=== PATIENT | female | born 1995 | race Caucasian/White ===

== ENCOUNTER → 2022-08-03 08:29 | Outpatient (CLI) | payer BC, SELFPAY ==
--- NOTE | ~2022-08-03 | MR_ITS ---
MRI of the brain Clinical History: Migraine Technique: Axial and sagittal T1-weighted images were acquired. These were followed by axial T2-weigh gisel, diffusion weighted, gradient, and FLAIR images. Following intravenous administration of 17 cc Mu ltiHance gadolinium, T1-weighted fat-sat imaging was performed in the axial and coronal planes. Findings: There is no abnormal signal in the brain parenchyma. No acute infarct, intracranial hemorrh age, or mass lesion identified. Ventricles and subarachnoid spaces are unremarkable. Orbits are unremarkable. Paranasal sinuses and m astoid air cells are clear. Major intracranial flow voids appear intact. Sagittal midline structures are intact. No abnormal postcontrast enhancement identified. IMPRESSION: Unremarkable exam. Reviewed, dictated and finalized at location M. IMPRESSION: Unremarkable exam.
== END ==
PROVIDERS: PCP Internal Medicine; Visit Provider Internal Medicine
DX: G43.909 Migraine, unspecified, not intractable, without status migrainosus (principal)
CPT/HCPCS: 70553; A9577

== ENCOUNTER 2023-01-16 08:33 | Emergency (ER) | payer BC, SELFPAY ==
[2023-01-16 08:47] VITALS: BP 125/75; PULSE 77; RESP 16; TEMP 36.9; O2SAT 100
--- NOTE | 2023-01-16 09:11 | ED.URI ---
HPI - URI/Sore Throat General Chief Complaint: Upper Respiratory Infection Stated Complaint: Cough;Chest pain;Bodyache Time Seen by Provider: 01/16/23 09:11 Source: patient, RN notes reviewed and old records reviewed Mode of arrival: ambulatory Limitations: no limitations History of Present Illness HPI Narrative: 28-year-old female who presents to [facility] with complaints of 10 day history of cough with expectoration of greenish tinged mucous, Patient reports that she has some sinus congestion an drainage with pressure to her ears also. Patient reports that she does have body aches but denies any known fevers or chills. Patient states that she has been taking some Mucinex without improvement in her symptoms.patient dttes that daughter has a slight cough but no other known sick contacts. Patient states when she gets the coughing fits she feels some shortness of breath and has priyanka discomfort to chest with cough. denies any history of asthma. MD elicited complaint: cough, rhinorrhea, nasal congestion and sinus pain Onset (ago): day(s) (10) Pain scale (0-10): 4 Description of mucous: green Exacerbating factors: other (coughing) Treatments prior to arrival: other (Mucinex) Related Data Home Medications Medication Instructions Recorded Confirmed levonorgestrel 21 mcg/24 hours (8 1 device intrauterine ONCE 01/20/22 01/20/22 yrs) 52 mg intrauterine device (Mirena) buspirone 7.5 mg tablet mg 01/16/23 sumatriptan succinate 50 mg tablet mg PO 01/16/23 Allergies Allergy/AdvReac Type Severity Reaction Status Date / Time No Known Allergies Allergy Verified 01/20/22 16:01 Review of Systems Review of Systems: CONSTITUTIONAL: Reports malaise, no chills, sweats, or fever. EYES: Denies visual changes, redness, or discharge. ENT: Reports rhinorrhea, congestion, sinus pain, otalgia and no sore throat. CARDIOVASCULAR: Denies chest pain, palpitations, or edema. RESPIRATORY: Reports cough.? states some dyspnea with coughing fits, and some soreness in chest GASTROINTESTINAL: Denies abdominal pain, nausea, vomiting, diarrhea SKIN: Denies rash or itching. MUSCULOSKELETAL: Positive for myalgia. NEUROLOGIC: Denies acute headache. All systems reviewed & are unremarkable except as noted in HPI and below PMFSH Past Medical History Medical History Encounter for IUD insertion 12/28/18 Mirena insertion Gestational hypertension Migraines Vaginal delivery 01/16/18 Nataliia Surgical History Surgical History History of 11/30/18 primary c/s--breech presentation, decreased FM Jerrod Family History Family History Grandparent Diabetes mellitus maternal grandmother maternal grandfather Heart disease paternal grandmother paternal grandfather Hypertension paternal grandmother paternal grandfather Mother Hypertension Social History Social History Smoking status: Never smoker Alcohol intake: never Substance use: never Substance use type: does not use Living arrangements: other Additional living arrangements comments: Occupation/Education: occupation Additional occupation/education comments: teacher Gender identity (if verbalized by the patient): Female Sexual Orientation (if Verbalized by the Patient): Straight or Heterosexual Comments At time of signature, agree with nursing past medical, surgical, social and family history. There is no relevant family history pertinent to the presenting complaint Exam Narrative: GENERAL: Well-appearing, well-nourished, and in no acute distress. HEAD: Normocephalic EYES: PERRLA, conjunctivae clear ENT: Nares clear, turbinates edematous and erythematous, clear to light yel
== END 2023-01-16 09:42 | disposition home or self-care (01) ==
PROVIDERS: Emergency Provider Registered Nurse; PCP Internal Medicine
DX: J01.40 Acute pansinusitis, unspecified (principal); Z20.822 Contact with and (suspected) exposure to COVID-19
CPT/HCPCS: 87426; 87804; 99213; C9803; G0463

== ENCOUNTER 2023-05-31 09:47 | Outpatient (CLI) | payer BC, SELFPAY ==
[2023-05-31 10:22] LABS: Basophils Percent Auto 0.2 % (0.2-1.2); Eosinophils Absolute Auto 0.1 K/mm3 (0-0.3); Eosinophils Percent Auto 0.8 % (0-4.4); Hematocrit 40.9 % (37.0-47.0); Hemoglobin 13.9 g/dL (12.0-15.0); Immature Granulocyte Absolute 0.04 K/mm3 (0.00-0.031); Immature Granulocyte Percent A 0.5 % (0-0.5); Lymphocytes Absolute Auto 1.64 K/mm3 (0.9-3.2); Mean Corpuscular Hemoglobin 30.9 pg (26-34); Mean Corpuscular Volume 90.9 fl (80-100); Mean Platelet Volume 10.4 fl (7.4-10.4); Monocytes Absolute Auto 0.6 K/mm3 (0.1-0.6); Monocytes Percent Auto 6.6 % (2.6-8.5); Neutrophils Absolute Auto 6.3 K/mm3 (1.3-6.7); Neutrophils Percent Auto 72.9 % (45.5-73.1); Platelet Count Result 250 k/mm3 (150-375); Red Cell Distribution Width 12.2 % (11.5-14.5); White Blood Count 8.6 K/mm3 (4.5-10.0)
[2023-05-31 11:14] LABS: HIV 1/2 Ab P24 Ag Result Negative (Negative)
[2023-05-31 11:51] LABS: Hepatitis B Surface Antigen Negative (Negative); Rubella IgG Antibody 13.5 IU/ML
[2023-06-01 12:36] LABS: Rapid Plasma Reagin Non-Reactive (NonReactive)
[2023-06-02 14:49] LABS: CMV IgG Antibody <0.60 U/mL
== END 2023-05-31 09:48 | disposition home or self-care (01) ==
LOC: ANHLAB 09:48
PROVIDERS: PCP Internal Medicine; Visit Provider Obstetrics & Gynecology
DX: N91.2 Amenorrhea, unspecified (principal)
CPT/HCPCS: 36415; 84702; 85025; 86592; 86644; 86703; 86747; 86762; 86787; 86850; 86900; 86901; 87086; 87340; G0432

== ENCOUNTER 2023-10-15 09:00 | Outpatient (CLI) | payer BC, SELFPAY ==
[2023-10-15 10:58] LABS: Hematocrit 38.7 % (37.0-47.0); Hemoglobin 12.9 g/dL (12.0-15.0); Mean Corpuscular HGB Conc 33.3 g/dl (32-36); Mean Corpuscular Hemoglobin 32.1 pg (26-34); Mean Corpuscular Volume 96.3 fl (80-100); Mean Platelet Volume 11.3 fl (7.4-10.4); Platelet Count Result 163 k/mm3 (150-375); Red Blood Count 4.02 M/mm3 (4.2-5.4); Red Cell Distribution Width 12.8 % (11.5-14.5); White Blood Count 10.5 K/mm3 (4.5-10.0)
[2023-10-15 11:18] LABS: Glucose 1 Hour PP 50gm Dose 123 mg/dL
[2023-10-15 11:54] LABS: HIV 1/2 Ab P24 Ag Result Negative (Negative)
[2023-10-15 12:41] LABS: Rapid Plasma Reagin Non-Reactive (NonReactive)
[2023-10-15] MEDS: RHO(D) IMMUNE GLOBULIN 300 MCG/2 ML SYRINGE IM (15:21)
== END 2023-10-15 09:01 | disposition home or self-care (01) ==
PROVIDERS: PCP Internal Medicine; Visit Provider Obstetrics & Gynecology
DX: Z34.90 Encounter for supervision of normal pregnancy, unspecified, unspecified trimester (principal)
CPT/HCPCS: 36415; 82947; 85027; 85461; 86592; 86703; 86850; 86900; 86901; 90384; 96372; G0432; J2790

== ENCOUNTER 2023-12-27 08:55 | Outpatient (RCR) | payer BC, SELFPAY ==
[2023-11-08 10:14] VITALS: BP 126/67; PULSE 99
[2023-11-12 09:27] VITALS: BP 123/68; PULSE 87
[2023-11-15 09:32] VITALS: BP 131/65; PULSE 94
[2023-11-19 09:39] VITALS: BP 122/63; PULSE 100
[2023-11-22 09:21] VITALS: BP 129/67; PULSE 104
[2023-11-26 09:32] VITALS: BP 121/64; PULSE 85
[2023-11-29 09:36] VITALS: BP 128/73; PULSE 89
[2023-12-03 09:24] VITALS: BP 123/57; PULSE 86
[2023-12-06 13:16] VITALS: BP 133/71; PULSE 90
[2023-12-10 09:24] VITALS: BP 126/63; PULSE 88
[2023-12-13 09:19] VITALS: BP 127/66; PULSE 94
[2023-12-17 09:29] VITALS: BP 123/62; PULSE 99
[2023-12-20 10:25] VITALS: BP 121/60; PULSE 98
[2023-12-24 09:36] VITALS: BP 127/71; PULSE 99
--- NOTE | ~2023-12-27 | US_ITS ---
EXAMINATION: US OB BPP wo non-stress DATE: 11/08/2023 10:55 INDICATION: Decreased movement. Third trimester. TECHNIQUE: Real-time pelvic ultrasound was performed. COMPARISON: Ultrasound 09/22/2023 FINDINGS: There is a single living fetus in vertex presentation. The placenta is on the left. The cervical yasmin gth is 5.5 cm on transabdominal images, which is normal. heart rate is 141 beats per minute (bp m). The deepest vertical pocket is 5.6 cm which is normal. Biophysical profile performed by the technologist: breathing (30 sec sustained breathing in 30 minutes): 2 out of 2 movement (3 gross body movements in 30 minutes): 2 out of 2 tone (one episode of cdigphi-lxfxyaacu-ujanlrh limb movement): 2 out of 2 Amniotic fluid pocket (2 cm): 2 out of 2 Total score: 8 out of 8 IMPRESSION: 1. Single living fetus in vertex presentation. 2. Biophysical profile 8 out of 8. Reviewed, dictated and finalized at location A.
--- NOTE | ~2023-12-27 | US_ITS ---
EXAMINATION: US OB BPP wo non-stress DATE: 11/22/2023 10:34 INDICATION: Decreased movement. Third trimester. TECHNIQUE: Real-time pelvic ultrasound was performed. COMPARISON: Ultrasound 11/15/2023 FINDINGS: There is a single living fetus in vertex presentation. The placenta is on the left. heart rate is 145 beats per minute (bpm). Biophysical profile performed by the technologist: breathing (30 sec sustained breathing in 30 minutes): 2 out of 2 movement (3 gross body movements in 30 minutes): 2 out of 2 tone (one episode of npddcxe-megpsqjti-iqmpxca limb movement): 2 out of 2 Amniotic fluid pocket (2 cm): 2 out of 2 Total score: 8 out of 8 IMPRESSION: 1. Single living fetus in vertex presentation. 2. Biophysical profile 8 out of 8. Reviewed, dictated and finalized at location A.
--- NOTE | ~2023-12-27 | US_ITS ---
LIMITED OBSTETRIC ULTRASOUND/BIOPHYSICAL PROFILE Ordering provider: George Jackson MD History: . decreased movement . Comparison: None. FINDINGS: MATERNAL CERVIX: visualized. Measures 4.4 cm which is normal. PRESENTATION: Vertex Longitudinal lie PLACENTAL LOCATION: Anterior left. No previa. HEART RATE: 148 bpm (normal is between 110 to 160 bpm). AMNIOTIC FLUID INDEX: Subjectively normal Largest vertical pocket is 7.8 cm. OTHER: Maternal ovaries not visualized. SCORE: breathing movements: 2 movements: 2 tone: 2 Amniotic fluid volume: 2 Total: 8 IMPRESSION: Normal biophysical profile. Reviewed, dictated and finalized at location A. IMPRESSION: Normal biophysical profile.
--- NOTE | ~2023-12-27 | US_ITS ---
EXAMINATION: US OB BPP wo non-stress DATE: 12/13/2023 09:49 INDICATION: Decreased movement. Third trimester. TECHNIQUE: Real-time pelvic ultrasound was performed. COMPARISON: Ultrasound 12/06/2023 FINDINGS: There is a single living fetus in vertex presentation. The placenta is on the left. heart rate is 139 beats per minute (bpm). Biophysical profile performed by the technologist: breathing (30 sec sustained breathing in 30 minutes): 2 out of 2 movement (3 gross body movements in 30 minutes): 2 out of 2 tone (one episode of rbpqwvn-apwjfihwo-unghnds limb movement): 2 out of 2 Amniotic fluid pocket (2 cm): 2 out of 2 Total score: 8 out of 8 IMPRESSION: 1. Single living fetus in vertex presentation. 2. Biophysical profile 8 out of 8. Reviewed, dictated and finalized at location B.
--- NOTE | ~2023-12-27 | US_ITS ---
EXAMINATION: US OB BPP wo non-stress DATE: 11/29/2023 10:57 INDICATION: Decreased movements TECHNIQUE: Real-time pelvic ultrasound was performed. The interpreting radiologist was not present fo r the study. COMPARISON: None. FINDINGS: There is a single living fetus in vertex presentation. The placenta is maternal left and not low-lyi ng. heart rate is 147 beats per minute (bpm). Normal cervical length measuring 3.4 cm. Biophysical profile performed by the technologist: breathing (30 sec sustained breathing in 30 minutes): 2 out of 2 movement (3 gross body movements in 30 minutes): 2 out of 2 tone (one episode of tzkjsly-richplrus-wsuezjm limb movement): 2 out of 2 Amniotic fluid pocket (2 cm): 2 out of 2 Total score: 8 out of 8 IMPRESSION: 1. Single living fetus in vertex presentation with heart rate of 147 bpm. 2. Biophysical profile 8 out of 8. Reviewed, dictated and finalized at location A.
--- NOTE | ~2023-12-27 | US_ITS ---
EXAMINATION: US OB BPP wo non-stress DATE: 12/20/2023 11:17 INDICATION: Decreased movement. Third trimester. TECHNIQUE: Real-time pelvic ultrasound was performed. COMPARISON: Ultrasound 12/13/2023 FINDINGS: There is a single living fetus in vertex presentation. The placenta is on the left. heart rate is 154 beats per minute (bpm). The cervical length is 3.6 cm on transabdominal images, which is norm al. Biophysical profile performed by the technologist: breathing (30 sec sustained breathing in 30 minutes): 2 out of 2 movement (3 gross body movements in 30 minutes): 2 out of 2 tone (one episode of bgltyxa-kdyibqbob-yrmngah limb movement): 2 out of 2 Amniotic fluid pocket (2 cm): 2 out of 2 Total score: 8 out of 8 IMPRESSION: 1. Single living fetus in vertex presentation. 2. Biophysical profile 8 out of 8. Reviewed, dictated and finalized at location A. OTAPE EDITOR
--- NOTE | ~2023-12-27 | US_ITS ---
EXAMINATION: US OB BPP wo non-stress DATE: 11/15/2023 09:45 INDICATION: Decreased movement. Third trimester. TECHNIQUE: Real-time pelvic ultrasound was performed. COMPARISON: Ultrasound 11/08/2023 FINDINGS: There is a single living fetus in vertex presentation. The placenta is on the left. heart rate is 152 beats per minute (bpm). The cervical length is 5.5 cm on transabdominal images, which is norm al. Biophysical profile performed by the technologist: breathing (30 sec sustained breathing in 30 minutes): 2 out of 2 movement (3 gross body movements in 30 minutes): 2 out of 2 tone (one episode of twegxcw-ohhdqnvyi-icnpffd limb movement): 2 out of 2 Amniotic fluid pocket (2 cm): 2 out of 2 Total score: 8 out of 8 IMPRESSION: 1. Single living fetus in vertex presentation. 2. Biophysical profile 8 out of 8. Reviewed, dictated and finalized at location A.
--- NOTE | ~2023-12-27 | US_ITS ---
EXAMINATION: US OB BPP wo non-stress DATE: 12/27/2023 10:13 INDICATION: Decreased movement. Third trimester. TECHNIQUE: Real-time pelvic ultrasound was performed. COMPARISON: Ultrasound 12/20/2023, 06/23/2023 FINDINGS: There is a single living fetus in vertex presentation. The placenta is on the left. heart rate is 133 beats per minute (bpm). The deepest vertical pocket is 5.9 cm. Biophysical profile performed by the technologist: breathing (30 sec sustained breathing in 30 minutes): 2 out of 2 movement (3 gross body movements in 30 minutes): 2 out of 2 tone (one episode of orcukbt-xavwuqvpm-xxbefsq limb movement): 2 out of 2 Amniotic fluid pocket (2 cm): 2 out of 2 Total score: 8 out of 8 IMPRESSION: 1. Single living fetus in vertex presentation. 2. Biophysical profile 8 out of 8. Reviewed, dictated and finalized at location A. RNIST MEDICAL DOCTOR MD
[2023-12-27 09:59] VITALS: BP 126/68; PULSE 86
== END 2024-01-12 17:48 | disposition home or self-care (01) ==
LOC: ANHOBOP 08:55
PROVIDERS: PCP Internal Medicine; Visit Provider Obstetrics & Gynecology
DX: O36.8190 Decreased fetal movements, unspecified trimester, not applicable or unspecified (principal)
CPT/HCPCS: 59025; 76819

== ENCOUNTER 2023-12-27 14:35 | Outpatient (CLI) | payer BC, SELFPAY ==
[2023-12-27 14:51] VITALS: BP 137/69; PULSE 88
--- NOTE | 2023-12-27 15:03 | PC.NURSE ---
1452--Report to Dr. Jackson BP 137/69, orders to DC home.
== END 2023-12-27 14:55 | disposition home or self-care (01) ==
LOC: ANHOBOP 14:43 → ANHOBPP 01-03 07:11
PROVIDERS: PCP Internal Medicine; Visit Provider Obstetrics & Gynecology
DX: O13.9 Gestational [pregnancy-induced] hypertension without significant proteinuria, unspecified trimester (principal); Z3A.00 Weeks of gestation of pregnancy not specified
CPT/HCPCS: 99199

== ENCOUNTER 2023-12-29 09:28 | Outpatient (CLI) | payer BC, SELFPAY ==
[2023-12-29 09:52] LABS: Hemoglobin 13.6 g/dL (12.0-15.0); Mean Corpuscular HGB Conc 34.9 g/dl (32-36); Mean Corpuscular Hemoglobin 32.3 pg (26-34); Mean Corpuscular Volume 92.6 fl (80-100); Mean Platelet Volume 11.3 fl (7.4-10.4); Platelet Count Result 139 k/mm3 (150-375); Red Blood Count 4.21 M/mm3 (4.2-5.4); Red Cell Distribution Width 13.1 % (11.5-14.5); White Blood Count 8.5 K/mm3 (4.5-10.0)
[2023-12-29 10:40] LABS: HIV 1/2 Ab P24 Ag Result Negative (Negative)
[2023-12-29 13:38] LABS: Rapid Plasma Reagin Non-Reactive (NonReactive)
== END 2023-12-29 09:29 | disposition home or self-care (01) ==
PROVIDERS: PCP Internal Medicine; Visit Provider Obstetrics & Gynecology
DX: Z34.93 Encounter for supervision of normal pregnancy, unspecified, third trimester (principal); Z3A.00 Weeks of gestation of pregnancy not specified
CPT/HCPCS: 36415; 85027; 85055; 86592; 86703; 86850; 86900; 86901; G0432

== ENCOUNTER 2023-12-30 09:59 | Inpatient (IN) | payer BC, SELFPAY ==
[2023-12-30] VITALS (64 sets, daily range): BP systolic 80–153; BP diastolic 39–127; PULSE 61–118; RESP 14–20; TEMP 36.7–37.1; O2SAT 97–100; BMI 35.5
--- NOTE | 2023-12-30 07:47 | PM.IMHP ---
H&P: HPI History of Present Illness Date/Time: 12/30/23 07:47 28-year-old 3 para 2003 female presents for repeat delivery at 39 weeks. records are on the chart and without significant abnormality. Also desires permanent sterilization, understands permanence failure rate increased risk of ectopic and regret. Chief Complaint: Review of Systems Review of Systems: All systems reviewed & are unremarkable except as noted in HPI and below PMFSH Past Medical History Medical History Encounter for IUD insertion 12/28/18 Mirena insertion Gestational hypertension Migraines Vaginal delivery 01/16/18 Nataliia Surgical History Surgical History H/O gynecological procedure (03/08/23) 03/08/23 mirena IUD removal History of 11/30/18 primary c/s--breech presentation, decreased FM Jerrod Family History Family History Grandparent Diabetes mellitus maternal grandmother maternal grandfather Heart disease paternal grandmother paternal grandfather Hypertension paternal grandmother paternal grandfather Mother Hypertension Social History Social History Smoking status: Never smoker Second hand tobacco smoke exposure: No Alcohol intake: never Substance use: never Substance use type: does not use Do You Feel Safe in your Home?: Yes Lack of Transportation: No Lack of Food: Never True Current Housing: I Have Housing Concerned About Future Housing: No Difficulty Paying Gas/Electric Bills: No Difficulty Paying for Meds: No Currently Unemployed: No Education: Master's Degree or Higher Difficulty w/ Childcare or Family Care: No Living arrangements: with family Additional living arrangements comments: Occupation/Education: occupation Additional occupation/education comments: teacher Gender identity (if verbalized by the patient): Female Sexual Orientation (if Verbalized by the Patient): Straight or Heterosexual Spiritual care concerns: No Meds Home Medications and Allergies Home Medications Medication Instructions Recorded Confirmed Type sumatriptan succinate 50 mg tablet 50 mg PO DAILY PRN Headache 01/16/23 12/27/23 History vits 75-iron 28 mg-folic 1 pkg PO DAILY 07/06/23 12/27/23 History acid 800 mcg-omega-3 oral combo pack (One A Day Women's DHA) aspirin 81 mg tablet,delayed 81 mg PO DAILY 08/10/23 12/27/23 History release (Adult Low Dose Aspirin) Allergies Allergy/AdvReac Type Severity Reaction Status Date / Time No Known Allergies Allergy Verified 12/27/23 13:59 Exam Const: General: cooperative and healthy appearing Resp: Effort & Inspection: normal respiratory effort Auscultation: clear to auscultation bilaterally Cardio: Rate: regular rate Rhythm: regular rhythm GI: Inspection: normal to inspection Auscultation: normal bowel sounds : Bimanual exam- vagina & uterus: enlarged (Fundal height 40cm, heart tone 140) Assessment and Plan Assessment and plan (1) 39 weeks gestation of : Code(s): Z3A.39 - 39 weeks gestation of Status: Acute (2) History of delivery affecting : Code(s): O34.219 - Maternal care for unspecified type scar from previous delivery Status: Acute (3) Encounter for female sterilization procedure: Code(s): Z30.2 - Encounter for sterilization Status: Acute Plan 1. Repeat delivery 2. bilateral salpingectomy
--- NOTE | 2023-12-30 08:32 | WPDHPUPDATE1 ---
History and Physical Update Update Date/Time: 12/30/23 08:32 History and Physical has been reviewed, including an updated exam of the patient. There are NO changes in the patient's condition. Risks, benefits, and alternatives have been discussed and questions answered. Patient agrees to proceed with procedure.
[2023-12-30] MEDS: ACETAMINOPHEN 500 MG TABLET 1000 MG PO (10:42)
[2023-12-30] MEDS: LACTATED RINGERS 1,000 ML 999 ML IV CONT (11:05)
--- NOTE | 2023-12-30 11:09 | P.PNAN_ITS ---
Anes - Initial Pre Proc Eval Procedure: Operation Date: 12/30/23 12:00 Proposed Procedures p Repeat Section with Bilateral Tubal Ligation - George Jackson MD Date/Time: 12/30/23 11:09 Surgeon: George Jackson MD Pre Op Diagnosis: C Section Patient Data Age: 28 Gender: F Height: 1.63 m Weight: 94 kg Allergies Allergy/AdvReac Type Severity Reaction Status Date / Time No Known Allergies Allergy Verified 12/27/23 13:59 Home Medications Medication Instructions Recorded Confirmed Type sumatriptan succinate 50 mg tablet 50 mg PO DAILY PRN Headache 01/16/23 12/27/23 History vits 75-iron 28 mg-folic 1 pkg PO DAILY 07/06/23 12/27/23 History acid 800 mcg-omega-3 oral combo pack (One A Day Women's DHA) aspirin 81 mg tablet,delayed 81 mg PO DAILY 08/10/23 12/27/23 History release (Adult Low Dose Aspirin) Patient hx anesthesia problems: none Family hx anesthesia problems: none Results Review: All pre-operative results and documents have been reviewed as part of the pre- operative evaluation. [facility] Past Medical History Medical History Encounter for IUD insertion 12/28/18 Mirena insertion Gestational hypertension Migraines Vaginal delivery 01/16/18 Nataliia Surgical History Surgical History H/O gynecological procedure (03/08/23) 03/08/23 mirena IUD removal History of 11/30/18 primary c/s--breech presentation, decreased FM Jerrod Family History Family History Grandparent Diabetes mellitus maternal grandmother maternal grandfather Heart disease paternal grandmother paternal grandfather Hypertension paternal grandmother paternal grandfather Mother Hypertension Social History Social History Smoking status: Never smoker Second hand tobacco smoke exposure: No Alcohol intake: never Substance use: never Substance use type: does not use Do You Feel Safe in your Home?: Yes Lack of Transportation: No Lack of Food: Never True Current Housing: I Have Housing Concerned About Future Housing: No Difficulty Paying Gas/Electric Bills: No Difficulty Paying for Meds: No Currently Unemployed: No Education: Master's Degree or Higher Difficulty w/ Childcare or Family Care: No Living arrangements: with family Additional living arrangements comments: Occupation/Education: occupation Additional occupation/education comments: teacher Gender identity (if verbalized by the patient): Female Sexual Orientation (if Verbalized by the Patient): Straight or Heterosexual Spiritual care concerns: No Anes - Eval Final PreProcedure Day of Procedure 12/30/23 11:09 Patient weight: overweight Heart: regular rate and rhythm Lungs: clear to auscultation Airway: Mallampati scale class 1 Neurological: alert and oriented Last oral intake: >/= 8 hours ASA classification: II Emergent: no Anesthetic plan: proceed Anesthesia type and monitoring: regional spinal and standard monitoring Results Review: All pre-operative results and documents have been reviewed as part of the pre- operative evaluation. Informed Consent: The patient's anesthetic plan and its attendant risks and benefits were discussed with the patient/family/POA. Questions were solicited and answers provided to the satisfaction of the patient/family/POA.
[2023-12-30] MEDS: ONDANSETRON INJ 4 MG/2 ML VIAL IV PUSH ×2 (11:10→15:15)
[2023-12-30] MEDS: FAMOTIDINE 20 MG/2 ML VIAL IV PUSH (11:15)
--- NOTE | 2023-12-30 11:15 | LDADM ---
This patient, Natalie Begum, was admitted to Labor/Delivery/Recovery 119 on 12/30/23 at 09:59. Plans for surgery, pain management, and were discussed with patient. Patient/family oriented to hospital policies and general routines including ID bracelet, bed and alarms, visiting hours, pain management, procedures, bathroom and other care routines, personal items, smoking policy, room service/diet and guest tray routines, security routines, and visiting hours. Patient/Family are encouraged to report perceived risks to care and to ask questions if they do not understand what they are told or what they should do. See OBIX for further documentation.
[2023-12-30] MEDS: ceFAZolin 2 GM/D5W 50 ML 2 GM/50 ML BAG IVPB (11:21)
--- NOTE | 2023-12-30 12:22 | P.PCNOB_ITS ---
OB - Delivery Note Procedure Delivery date: 12/30/23 Pre-op diagnosis: Previous Delivery and Other ( undesired Fertility) Post-op Diagnosis: Same Procedure Performed: Repeat Secondary branch: low cervical, transverse and Tubal Ligation Surgeon: George Jackson MD Anesthesia type: Spinal Description of Procedure/Findings: patient prepped in usual manner this procedure. Pfannenstiel was made which carried down the fascia. This was extended bilaterally the length of the skin incision. Superiorly and inferiorly dissected away from the rectus muscles. Peritoneum was entered and the bladder flap was developed. Uterus scored in low transverse manner and extended lower segment. Vertex was delivered with nuchal cord reduced. Rest of baby was delivered cord clamped cut and placenta was removed manually. Uterus was repaired using 0 Monocryl running interlocking manner with good approximation hemostasis noted. Bilaterally the tubes were then doubly ligated using 0 plain suture and the knot of tissue was removed. Prior to returning to the abdomen both tubal segments on both tubal segments were oozing and rendered hemostatic using 2-0 chromic in rzplmn-hn-phvoa suture. Uterus was returned to the abdomen both tubal segments and pedicles were noted to be hemostatic, uterus was oozing with a ywmlfv-in-wziii suture in the incision readily rendering this area hemostatic. Dittmer arm was placed on all the sites. Fascia was approximated using 0 Vicryl running interlocking manner from the left angle midline and the right angle to the midline. Subcutaneous tissue was used to approximate subcu tissue and jeet were used to approximate the skin edges. Patient was sent to recovery room in stable condition. Specimen: Yes Estimated Blood Loss: 830 Drains: Yes ( Aguero) Packing: No Pathology: Yes Complications: No immediate complications Condition: Stable Disposition: PACU Baby Gestational Age by Date: 39 gender: Male presentation: vertex Placenta delivery description: Manual Removal Cord Vessel Description: 3 Vessels, Nuchal Cord and Reduced
[2023-12-30] MEDS: fentaNYL CITRATE INJ (*CRX) 100 MCG/2 ML VIAL 25 MCG IV PUSH ×6 (12:42→14:45)
[2023-12-30] MEDS: OXYTOCIN 30 UNITS/NS 500 ML 30 UNITS/500 ML BAG 125 UNITS IV CONT (12:52)
[2023-12-30] MEDS: LIDOCAINE 5% PATCH 1 PATCH (12:53)
[2023-12-30] MEDS: METHYLERGONOVINE MALEATE 0.2 MG/ML VIAL IM (12:54)
[2023-12-30] MEDS: OXYTOCIN 30 UNITS/NS 500 ML 30 UNITS/500 ML BAG 125 UNITS (13:22)
[2023-12-30] MEDS: KETOROLAC 15 MG/ML VIAL (*BKC) IV PUSH ×2 (15:13→20:42)
[2023-12-30] MEDS: ACETAMINOPHEN 325 MG TABLET 650 MG PO ×2 (15:14→20:42)
--- NOTE | 2023-12-30 15:16 | SUR.PHASEI ---
1250--Vaginal bleeding noted to be heavy, no clots noted, Dr. Jackson on unit and made aware of increased bleeding, to bedside to evaluate pt. Orders for methergine IM and to run first pitocin bag at 999 ml/hr.
--- NOTE | 2023-12-30 15:55 | OBPPTRN ---
1458-Patient transferred to post room #285 via stretcher. Support person present. Oriented to unit, room, information board, rooming in, admission packet and security measures. Patient verbalizes understanding.
--- NOTE | 2023-12-30 16:26 | PC.NURSE ---
1530. Consulted with patient to assess needs related to . Discussed with mother her successes, concerns and any questions she has. Mom explains that it is her intent to exclusively breastfeed. She reports she attempted to feed with her first baby. We reviewed working with the infant, supporting breast, protecting her nipples with an optimal deep latch, good positioning, and good hand washing. Encouraged understanding the benefits of skin to skin, responding to feeding cues, frequencies of feeding 8-12 times in 24 hours (approximately 2-3 hours), duration of feedings, milk production, intake/output feeding sheet and signs of adequate intake encouraging swallowing at the breast. Reviewed positioning and alignment, supporting breast, off-centered (asymmetrical latch) and leading with the chin with big, open, wide gape. Infant latched optimally to the right breast in cross cradle position. Education given to the mother of how to visualize the suckling (with good rocking jaw motion) swallows (dropping of the lower jaw) and how to listen for drinking at the breast (the ka sound). The was able to maintain latch without discomfort to mother. Nipple care reviewed with optimal latch, good positioning and using clean hands when touching her breast. Infant had a tendency to roll is upper lip under so we discussed how to help him keep it flanged out as it should be to protect the skin integrity of the nipple. Resources used to facilitate learning were used from the visual handouts & mom and baby guide. Mother voiced understanding of the education shared, to call for assistance if the does not latch or if there is discomfort with . Mom reports she does not need a WIC referral at this time when questioned. Mom also reports she has a breast pump at home thru insurance and does not need another. Reported to the Primary RN.
[2023-12-30] MEDS: DOCUSATE SODIUM 100 MG CAPSULE PO (17:28)
[2023-12-30] MEDS: SIMETHICONE 80 MG TAB.CHEW PO (17:28)
[2023-12-30] MEDS: LIDOCAINE 5% PATCH 1 PATCH TRANSDERM (21:13)
[2023-12-31 01:00] VITALS: BP 110/60; PULSE 75; RESP 16; TEMP 37.1; O2SAT 100
[2023-12-31] MEDS: ACETAMINOPHEN 325 MG TABLET 650 MG PO ×4 (03:00→22:51)
[2023-12-31] MEDS: KETOROLAC 15 MG/ML VIAL (*BKC) IV PUSH (03:00)
[2023-12-31 04:41] LABS: Basophils Percent Auto 0.3 % (0.2-1.2); Eosinophils Absolute Auto 0.2 K/mm3 (0-0.3); Eosinophils Percent Auto 1.4 % (0-4.4); Hematocrit 35.1 % (37.0-47.0); Immature Granulocyte Absolute 0.08 K/mm3 (0.00-0.031); Immature Granulocyte Percent A 0.7 % (0-0.5); Immature Platelet Fraction Pct 6.1 % (0.9-11.2); Lymphocytes Absolute Auto 1.91 K/mm3 (0.9-3.2); Lymphocytes Percent Auto 15.5 % (18.3-44.2); Mean Corpuscular HGB Conc 34.2 g/dl (32-36); Mean Corpuscular Hemoglobin 32.3 pg (26-34); Mean Corpuscular Volume 94.4 fl (80-100); Mean Platelet Volume 11.4 fl (7.4-10.4); Monocytes Absolute Auto 0.9 K/mm3 (0.1-0.6); Monocytes Percent Auto 7.2 % (2.6-8.5); Neutrophils Absolute Auto 9.2 K/mm3 (1.3-6.7); Neutrophils Percent Auto 74.9 % (45.5-73.1); Platelet Count Result 138 k/mm3 (150-375); Red Blood Count 3.72 M/mm3 (4.2-5.4); White Blood Count 12.3 K/mm3 (4.5-10.0)
[2023-12-31 07:50] VITALS: BP 108/69; PULSE 74; RESP 16; TEMP 37.6; O2SAT 99
[2023-12-31 08:00] VITALS: PULSE 74; RESP 16; O2SAT 99
[2023-12-31] MEDS: DOCUSATE SODIUM 100 MG CAPSULE PO (08:19)
[2023-12-31] MEDS: SIMETHICONE 80 MG TAB.CHEW PO ×3 (08:19→16:53)
[2023-12-31] MEDS: MULTIVIT/MIN/PREN/FOL AC/IRON TABLET 1 TAB PO (08:19)
--- NOTE | 2023-12-31 08:55 | PC.NURSE ---
[id number] RN in room to assess latch, mother had called out and verbalizes she is able to independently latch with appropriate positioning and alignment,and his top lip is not curling under as it had with previous feeds . She denies any nipple discomfort and is responsively . Infant is currently meeting outcomes for weight, output, jaundice, blood sugar and feeding frequencies of 8-12 times in 24 hours. Mother declines any additional assistance or education at this time. Mother is encouraged to call for assistance if her infant doesn?t latch, pain with latching, questions or concerns. Mother voiced understanding of information shared along with the mom/baby guide for an additional resource. Reported to the Primary RN.
--- NOTE | 2023-12-31 09:05 | P.PNOB_ITS ---
OB - PN: Subj Subjective Date/time seen: 12/31/23 09:05 S: Diet ambulation without difficulty. Pain well controlled status post C- section. well. O:VSS AFEBRILE abdomen: Positive bowel sounds soft, appropriately tender Labs: Noted A: Doing well status post repeat with tubal ligation P: Continue routine post /postoperative care, planned discharge home tomorrow OB - PN: Obj Data Labs 12/31/23 04:27 Labs: Laboratory Results - last 24 hr 12/31/23 04:27 WBC 12.3 H RBC 3.72 L Hgb 12.0 Hct 35.1 L MCV 94.4 MCH 32.3 MCHC 34.2 RDW 13.0 Plt Count 138 L MPV 11.4 H Immature Gran % (Auto) 0.7 H Neut % (Auto) 74.9 H Lymph % (Auto) 15.5 L [place] % (Auto) 7.2 Eos % (Auto) 1.4 Baso % (Auto) 0.3 Lymph # (Auto) 1.91 [place] # (Auto) 0.9 H Eos # (Auto) 0.2 Baso # (Auto) 0.0 Abs Immat Gran (auto) 0.08 H Absolute Neuts (auto) 9.2 H Absolute Nucleated RBC 0.000 Nucleated RBC % 0.0 % Immature Plt Fraction 6.1 OB - PN A/P Time Spent With Patient Time: Total time spent is greater than 50% in coordination of care (as documented) at patient's floor/unit and/or counseling patient:
--- NOTE | 2023-12-31 09:07 | PM.OBDSVD ---
DS: Admitting Diagnosis Discharge Date 01/01/2024 Admitting Diagnosis DS: Discharge Diagnosis Discharge Diagnosis (1) , delivered: Code(s): O80 - Encounter for full-term uncomplicated delivery Status: Acute OB - DS: Summary OB Procedures : NST OB Procedures Intrapartum: low cervical, transverse and Tubal ligation OB Procedures: : None Peripartum Data Procedures: Procedures Operation Date: 12/30/23 12:00 Actual Procedure Side Surgeon p Section George Jackson MD Time Spent with Patient Time attestation: Total time spent providing and/or coordinating discharge services: DS: Data Data Completed and Pending Pending studies at discharge: Pending at discharge 12/30/23 11:48 Surgical [PTH] Routine Labs on day of discharge: Labs from last 24 hours 12/31/23 04:27 WBC 12.3 H RBC 3.72 L Hgb 12.0 Hct 35.1 L MCV 94.4 MCH 32.3 MCHC 34.2 RDW 13.0 Plt Count 138 L MPV 11.4 H Immature Gran % (Auto) 0.7 H Neut % (Auto) 74.9 H Lymph % (Auto) 15.5 L [place] % (Auto) 7.2 Eos % (Auto) 1.4 Baso % (Auto) 0.3 Lymph # (Auto) 1.91 [place] # (Auto) 0.9 H Eos # (Auto) 0.2 Baso # (Auto) 0.0 Abs Immat Gran (auto) 0.08 H Absolute Neuts (auto) 9.2 H Absolute Nucleated RBC 0.000 Nucleated RBC % 0.0 % Immature Plt Fraction 6.1 Discharge Plan Discharge Discharging Clinician: George Jackson Patient Disposition: Home, Self-Care Activity: may shower, no straining, follow weight bearing status and pelvic rest Diet: as tolerated Discharge Instructions: return office next Wednesday or for staple removal Patient Instructions: Antibiotic Form Stand Alone Forms: General Discharge Information Follow-up/Referrals: George Jackson MD [Physician] - 3 Weeks Discharge Medications: New hydrocodone-acetaminophen 5-325 mg Tablet 1 tablet PO Q3H PRN (Reason: Breakthrough Pain Rated 4-6) Qty: 20 0RF ibuprofen 600 mg Tablet 600 mg PO Q6H Qty: 30 0RF Continued sumatriptan succinate 50 mg tablet 50 mg PO DAILY PRN (Reason: Headache) One A Day Women's DHA 28 mg iron- 800 mcg combo pack 1 pkg PO DAILY Discontinued aspirin [Adult Low Dose Aspirin] 81 mg tablet,delayed release (DR/EC) 162 mg PO DAILY Date of admission: 12/30/23 09:59 Primary Care Provider: Pratibha Jacques Admitting Provider: George Jackson Attending physician on admission: George Jackson Condition: Stable
--- NOTE | 2023-12-31 10:37 | WPDANLDPN2 ---
Anes-Prog Note L&D Date/Time: 12/31/23 10:37 Comfortable throughout: section Neuraxial method: spinal Epidural/Spinal procedure site: clean & non-tender Neuro status: Neuro function grossly intact. Cardiovascular status: normal Respiratory status: normal Airway patency: baseline Mental status: baseline Post-Op hydration status: normal Vital Signs: Last Vital Signs Temp 37.6 C H 12/31/23 07:50 Pulse 74 12/31/23 07:50 Resp 16 12/31/23 07:50 BP 108/69 12/31/23 07:50 Pulse Ox 99 12/31/23 07:50 O2 Del Method Room Air 12/30/23 21:03 Pain score (VAS): 0/10 I/O: Intake & Output 12/30/23 12/31/23 12/31/23 23:59 07:59 15:59 Intake Total 100 240 Output Total 400 Balance 100 -160 Post-procedural complaints: none Patient feedback: Patient satisfied with anesthetic care.
--- NOTE | 2023-12-31 10:38 | WPDANLDNPN2 ---
Anes-Prog Note L&D-Neuraxial Date/Time: 12/31/23 10:38 Neuraxial medications: intrathecal PF morphine Opiod-related complaints: pruritis mild, no treatment Patient feedback: Patient satisfied with post-operative pain management.
[2023-12-31] MEDS: IBUPROFEN 600 MG TABLET PO ×3 (10:40→22:51)
[2023-12-31] MEDS: LIDOCAINE 5% PATCH 1 PATCH TRANSDERM (10:41)
[2023-12-31 23:15] VITALS: BP 118/69; PULSE 89; RESP 16; TEMP 36.8; O2SAT 100
[2024-01-01] MEDS: IBUPROFEN 600 MG TABLET PO (06:20)
[2024-01-01] MEDS: ACETAMINOPHEN 325 MG TABLET 650 MG PO (06:20)
[2024-01-01 08:50] VITALS: BP 121/74; PULSE 66; RESP 16; TEMP 36.2; O2SAT 100
[2024-01-01] MEDS: DOCUSATE SODIUM 100 MG CAPSULE PO (08:55)
[2024-01-01] MEDS: MULTIVIT/MIN/PREN/FOL AC/IRON TABLET 1 TAB PO (08:55)
[2024-01-01] MEDS: SIMETHICONE 80 MG TAB.CHEW PO (08:55)
--- NOTE | 2024-01-01 09:00 | PC.NURSE ---
Consulted with mother concerning needs and she shared her ability to independently latch infant. She states that the initial latch on is very sore but it goes away after a minute and the rest of the feeding is not painful. Mother is feeding appropriately for growth of and understands stimulating infant to eat if needed. has had appropriate feedings in the last 24 hours meets the outcomes for weight, output, blood sugar and jaundice at this time. She is supplementing with formula occasionally. Reinforced understanding of milk production, transition of milk, signs of adequate intake, transition of stool, community resources, and when to call a provider using the resource of the feeding sheet along with the mom and baby guide. Hydrogel pads given and mother measured for nipple shield use (18mm measure, recommend 21mm shield/flange), though she was educated that introducing the nipple shield can cause more pain and may make latching without the shield particularly difficult. Mother voiced understanding of the information shared, is confident to continue effectively her at home, when to call for assistance, denies any additional assistance or education at this time. Reported to the Primary RN.
[2024-01-03 10:23] VITALS: BP 130/81; PULSE 72; RESP 16; TEMP 36.6; O2SAT 98
== END 2024-01-01 11:30 | disposition home or self-care (01) | DRG 785 ==
LOC: ANHLDR 10:02 → ANHOB2 15:02
PROVIDERS: Admitting Provider Obstetrics & Gynecology; PCP Internal Medicine; Visit Provider Obstetrics & Gynecology
PROC: 10D00Z1 Extraction of Products of Conception, Low, Open Approach (ICD-10-PCS; CPT 59514; principal; 2023-12-30 12:00)
DX: O34.211 Maternal care for low transverse scar from previous cesarean delivery (principal); Z37.0 Single live birth; Z3A.39 39 weeks gestation of pregnancy; Z30.2 Encounter for sterilization; O69.81X0 Labor and delivery complicated by cord around neck, without compression, not applicable or unspecified
CPT/HCPCS: 36415; 85025; 85055; 88302; A9270; J0690; J1885; J2210; J2274; J2371; J2405; J2590; J3010; J7120

== ENCOUNTER 2024-01-25 09:00 | Outpatient (CLI) | payer BC, SELFPAY ==
--- NOTE | 2024-01-25 09:15 | PC.NURSE ---
In- [phone] Out- 954 Reason for visit: Sore nipples/latch check, transitioning from bottle back to breast History: This is Natalie's 3rd baby. She tried her first baby and had very painful cracked/bleeding nipples. She did not breastfeed her second baby because he was in the NICU. Mom initially breastfed baby Brando in the hospital but when she got home found that her nipples were too painful to continue , so she began pumping and bottle feeding. She would like to get baby back to the breast now that her nipples have healed. She has a great milk supply, pumping 4-5 ounces on average each session. She has some plugged ducts, especially the left breast, that do resolve with pumping, and resolve even better with . Discussed positioning baby's chin in the direction of the plugged ducts to facilitate clearing, along with heat and gentle massage. Infant History: Baby Brando is 3 weeks old. He is gaining weight appropriately and had a natural science curator check up last week that went well. Mom is working to get a comfortable latch but is still having some soreness and pain with feeding. Observations: Natalie latched Brando independently, encouraging a wide gape with her finger on his chin if needed. He did have his lower lip rolled under and mom was shown how to observe for flanged lips and how to pull down on his chin after latching to release the lower lip if needed. She said this did make a difference in the feel of the latch. Mom has initial latch on soreness that resolves within 30 seconds to 1 minute of ; encouraged her that this is not unusual when feeding a and that it should start to resolve soon. If she doesn't notice a difference in the nipple soreness after a week she will call back and we will reassess the latch. Baby was a great and efficient nursling and transferred 2 ounces during the 20 minute feeding. weight: 3850 8#8 Lowest weight: 3545 7#13 Last weight: 8#12 Pre-feed weight: 4409 9#12 Post-feed weight: 4474 (65 ml of breastmilk transferred) Plan of Care: Mom will continue to offer the breast at every feeding. After , if shows signs of wanting to eat more, she can offer the breast again or she can give him a bottle of breastmilk. As baby becomes more proficient and mom is more comfortable with , she will most likely be able to stop offering additional breastmilk in the bottle and will be able to meet all of baby's nutritional needs at the breast. Mom would like to decrease the amount of pumping she does daily. Discussed that she can pump as desired, or after feedings that doesn't adequately stimulate the breast. Baby is alert and eager to feed so he should be able to move to exclusive with minimal difficulty. Follow up plans: Natalie will call for an appointment with Services if her nipple soreness does not resolve within the next week or if she is not able to transition baby to exclusively despite regularly putting baby to breast for effective feedings. Mom has some plugged ducts, especially the left side, that generally resolve with feeding/pumping. If this becomes a chronic problem or if she is not able to resolve the plugged ducts with heat and massage, she will call and we will assess the situation in greater detail.
== END 2024-01-25 09:01 | disposition home or self-care (01) ==
PROVIDERS: PCP Internal Medicine; Visit Provider Pediatrics
DX: O92.79 Other disorders of lactation (principal)
CPT/HCPCS: 99202; G0463